=== PATIENT | male | born 1965 | race African-American/Black ===

== ENCOUNTER 2025-03-23 21:23 | Emergency (ER) | payer OTHER ==
[~2025-03-23] VITALS: Ht 185.4 cm; Wt 95.5 kg
[2025-03-23 21:25] VITALS: BP 121/81; PULSE 95; RESP 18; TEMP 98.4; O2SAT 97
== END 2025-03-23 22:43 | disposition left against medical advice (07) ==
LOC: EMS 21:23
DX: R07.89 Other chest pain (principal); R06.02 Shortness of breath; Z53.21 Procedure and treatment not carried out due to patient leaving prior to being seen by health care provider
CPT/HCPCS: 93005